=== PATIENT | male | born 1960 | race Caucasian/White ===

== ENCOUNTER 2017-01-14 10:09 | Day surgery (SDC) | payer OTHER ==
[~2017-01-14] VITALS: Ht 180.3 cm; Wt 86.3 kg
[~2017-01-14 10:09] MED LIST: AMBIEN10 MG PO; AMBIEN5 M1 PO; CLARITIN10 M3 PO; COQ-10; FISH OIL CONC1 EACH PO; KLONOPIN0.5 M1 PO; LEXAPRO20 MG PO; LUNESTA2 MG PO; MOTRIN800 MG PO; Motrin PO; NEURONTIN600 MG PO; NORTRIPTYLINE H10 MG PO; PROBIOTIC1 EAC1 PO; TIZANIDINE HCL PO; Tamiflu PO; VALIUM5 MG PO; VITAMIN B-6; VITAMIN C PO; ZOLOFT100 M1 PO
[2017-01-14 11:04] VITALS: BP 113/67
[2017-01-14 11:52] LABS: METH RESISTANT S AUREUS PCR NEGATIVE (NEGATIVE)
[2017-01-14 11:59] LABS: PROBE CHECK PASS; SPECIMEN PROCESSING CONTROL PASS
[2017-01-14 14:15] VITALS: BP 141/78
[2017-01-14 15:12] VITALS: BP 131/79
== END 2017-01-14 15:20 | disposition home or self-care (01) ==
LOC: SDC 10:09
PROVIDERS: Internal Medicine
PROC: 085E3ZZ Destruction of Right Retina, Percutaneous Approach (ICD-10-PCS; principal; 2017-01-14)
PROC: 08B43ZZ Excision of Right Vitreous, Percutaneous Approach (ICD-10-PCS; principal; 2017-01-14)
PROC: 08NE3ZZ Release Right Retina, Percutaneous Approach (ICD-10-PCS; principal; 2017-01-14)
DX: H33.21 Serous retinal detachment, right eye (principal); E78.5 Hyperlipidemia, unspecified; F90.1 Attention-deficit hyperactivity disorder, predominantly hyperactive type; R73.03 Prediabetes; Z82.5 Family history of asthma and other chronic lower respiratory diseases; Z82.49 Family history of ischemic heart disease and other diseases of the circulatory system; Z83.3 Family history of diabetes mellitus
CPT/HCPCS: 87641; J0690; J2250; J2405; J3300